=== PATIENT | male | born 1955 | race Caucasian/White ===

== ENCOUNTER 2016-09-12 11:16 | Emergency (ER) | payer BC ==
[~2016-09-12] VITALS: Ht 175.3 cm; Wt 86.2 kg
[2016-09-12] MEDS ORDERED: IV NORMAL SALINE 500ML 500 ML IV ONE (12:20)
[2016-09-12] MEDS ORDERED: ONDANSETRON PF 4 MG/2 ML VIAL. IV ONE (12:20)
[2016-09-12 12:23] LABS: BASO % 1 % (0-3); EOS % 1 % (0-3); HEMATOCRIT 39.2 % (39.0-53.0); HEMOGLOBIN 13.3 g/dL (13.0-17.5); LYMPH # 1.4 x10^3/uL (1.0-4.8); LYMPH % 19 % (24-48); MEAN CORPUSCULAR HEMOGLOBIN 34 pg (25-35); MEAN CORPUSCULAR HGB CONC 34 g/dL (31-37); MEAN CORPUSCULAR VOLUME 100 fL (79-100); MONO # 0.6 x10^3/uL (0.0-1.1); MONO % 8 % (0-9); NEUT # 5.2 x10^3uL (1.8-7.7); NEUT % 72 % (31-73); PLATELET COUNT 221 x10^3/uL (140-400); RED BLOOD COUNT 3.92 x10^6/uL (4.30-5.70); WHITE BLOOD COUNT 7.3 x10^3/uL (4.0-11.0)
[2016-09-12 12:31] LABS: BACTERIA,URINE FEW /HPF (0-FEW); BILIRUBIN,URINE NEG (NEG); CLARITY,URINE CLOUDY; COLOR,URINE YELLOW; GLUCOSE,URINE NEG (NEG); NITRITE,URINE NEG (NEG); RBC,URINE >40 /HPF (0-2); SQUAMOUS EPITHELIAL CELL,UR FEW /LPF; UROBILINOGEN,URINE 0.2 mg/dL (0.2 mg/dL)
[2016-09-12 12:32] LABS: HYALINE CASTS, URINE OCC /HPF
[2016-09-12 12:38] LABS: ALBUMIN/GLOBULIN RATIO 1.1 (1.0-1.7); CALCIUM 9.6 mg/dL (8.5-10.1); CREATININE 1.2 mg/dL (0.7-1.3); GFR 61.8; TOTAL BILIRUBIN 0.2 mg/dL (0.2-1.0); TOTAL PROTEIN 7.8 g/dL (6.4-8.2)
[2016-09-12] MEDS ORDERED: IOHEXOL 300 MG/ML 75 ML VIAL. IV ONE (13:00)
--- NOTE | 2016-09-12 13:35 | RAD ---
Indication right-sided pain under the rib cage. Axial images through the abdomen and pelvis were obtained. Approximately 75 cc of Omnipaque 300 was administered intravenously. No oral contrast was administered. No prior imaging of the abdomen or pelvis is available. An acute finding at either lung base is not seen. There is a tiny nodule peripherally in the right middle lobe measuring approximately 2 mm, image 3 series 2. Follow-up imaging along the lines of the Fleischner criteria advised. The liver and spleen appear unremarkable. The gallbladder appears grossly normal. There are no adrenal masses. The pancreas appears unremarkable. There is a large 7.5 cm right renal cyst. On the left there is mild hydronephrosis and dilatation of the renal pelvis to a 4 mm calculus at the UPJ. More distally the left ureter appears unremarkable. No acute finding is seen in the pelvis. IMPRESSION: 4 mm calculus at the left UPJ with associated mild obstructive uropathy. Right renal cyst. 2 mm nodule in the right middle lobe. Follow-up imaging along the lines of the Fleischner criteria should be considered. Nodules detected incidentally at non-screening CT Nodule size (mm) less than or equal to 4 Low Risk patients- no follow-up needed High Risk patients- follow-up at 12 months and if no change, no further imaging needed. Nodule size > 4-6 mm Low risk patients- follow- up at 12 months and if no change, no further imaging needed High risk patients- initial follow-up CT at 6-12 months and then at 18-24 months if no change. Nodule Size > 6-8 mm Low risk patients- initial follow-up CT at 6-12 months and then at 18-24 months if no change. High risk patients- initial follow- up CT at 3-6 months and then at 9-12 months if no change, Nodule Size >8 mm Either low or high risk patients: Follow-up CT at around 3, 9 and 24 months Dynamic contrast enhanced CT, PET, and/or biopsy Note: newly detected indeterminate nodule in person 35 years of age or older. Low risk patients- minimal or absent history of smoking and/or other known risk factors. High risk patients- history of smoking or of other known risk factors.
[2016-09-12] MEDS ORDERED: OXYC-323 PO (14:29)
[2016-09-12] MEDS ORDERED: TAMS0.4C97 PO (14:30)
--- NOTE | 2016-09-12 14:33 | PHYS DOC ---
Past History Past Medical History: Constipation, Hypertension, Liver Disease, Other Past Surgical History: No Surgical History Alcohol Use: None Drug Use: None Adult General Chief Complaint Chief Complaint: ABDOMINAL PAIN HPI HPI Patient is a 61 year old male who presents with abdominal pain. The patient states he was at work & had sudden onset of sharp LLQ pain that caused him to double over. He says the pain has almost completely resolved now. he has 1 week history of watery diarrhea - preceded by constipation when he was taking percocet for back pain. He denies fevers/chills, nausea/vomiting, hematochezia/ melena, dysuria/hematuria, testicular pain. He denies previous history of similar pain. History of hep C & HTN, no abdominal surgeries. Review of Systems Review of Systems Constitutional: Denies fever or chills Eyes: Denies change in visual acuity HENT: Denies nasal congestion or sore throat Respiratory: Denies cough or shortness of breath Cardiovascular: Denies chest pain or edema GI: Reports abdominal pain & diarrhea, denies nausea, vomiting, bloody stools : Denies dysuria or hematuria Musculoskeletal: Denies back pain or joint pain Integument: Denies rash or skin lesions Neurologic: Denies headache, focal weakness or sensory changes Current Medications Current Medications Current Medications Medications (Trade) Dose Ordered Sig/Edgar Start Time Stop Time Status Last Admin Dose Admin Iohexol (Omnipaque 300 Mg/ml) 75 ml 1X ONCE 09/12/16 13:00 09/12/16 13:01 DC 09/12/16 13:04 75 ML Ondansetron HCl (Zofran) 4 mg 1X ONCE 09/12/16 12:20 09/12/16 12:21 DC Sodium Chloride 500 ml @ 0 mls/hr 1X ONCE 09/12/16 12:20 09/12/16 12:21 DC 09/12/16 12:20 500 MLS/HR Allergies Allergies Allergies Coded Allergies Type Severity Reaction Last Updated Verified ciprofloxacin Allergy Intermediate Diarrhea 02/26/15 Yes Physical Exam Physical Exam Constitutional: Well developed, well nourished, no acute distress, non-toxic appearance. HENT: Normocephalic, atraumatic, bilateral external ears normal, oropharynx moist, nose normal. Eyes: conjunctiva normal, no discharge. Neck: supple, no stridor. Cardiovascular: RRR, no murmurs, no edema. Lungs & Thorax: LCTAB, no wheezing, no respiratory distress. Abdomen: normal bowel sounds, soft, no focal tenderness with palpation, no rebound/guarding, no masses or pulsatile masses, nondistended. Skin: Warm, dry, no erythema, no rash. Back: No CVA tenderness. Extremities: No tenderness, no edema. Neurologic: Alert and oriented X 3, no focal deficits noted. Psychologic: Affect normal, judgement normal, mood normal. Current Patient Data Vital Signs Vital Signs Date Time Temp Pulse Resp B/P (MAP) Pulse Ox O2 Delivery O2 Flow Rate FiO2 09/12/16 11:25 98.1 87 18 98 Room Air Lab Results Laboratory Tests Test 09/12/16 12:00 09/12/16 12:08 Urine Collection Type Unknown Urine Color Yellow Urine Clarity Cloudy Urine pH 5.5 Urine Specific [place] >=1.030 Urine Protein 100 mg/dl (NEG-TRACE) Urine Glucose (UA) Neg mg/dL (NEG) Urine Ketones (Stick) Neg mg/dL (NEG) Urine Blood Large (NEG) Urine Nitrite Neg (NEG) Urine Bilirubin Neg (NEG) Urine Urobilinogen Dipstick 0.2 mg/dL (0.2 mg/dL) Urine Leukocyte Esterase Neg (NEG) Urine RBC >40 /HPF (0-2) Urine WBC 1-4 /HPF (0-4) Urine Squamous Epithelial Cells Few /LPF Urine Bacteria Few /HPF (0-FEW) Urine Hyaline Casts Occ /HPF Urine Mucus Mod /LPF White Blood Count 7.3 x10^3/uL (4.0-11.0) Red Blood Count 3.92 x10^6/uL (4.30-5.70) L Hemoglobin 13.3 g/dL (13.0-17.5) Hematocrit 39.2 % (39.0-53.0) Mean Corpuscular Volume 100 fL (79-100) Mean Corpuscular Hemoglobin 34 pg (25-35) Mean Corpuscular Hemoglobin Concent 34 g/dL (31-37) Red Cell Distribution Width 14.0 % (11.5-14.5) Platelet Count 221 x10^3/uL (140-400) Neutrophils (%) (Auto) 72 % (31-73) Lymphocytes (%) (Auto) 19 % (24-48) L Monocytes (%) (Auto) 8 % (0-9) Eosinophils (%) (Auto) 1 % (0-3) Basophils (%) (Auto) 1 % (0-3) Neutrophils # (Auto) 5.2 x10^3uL (1.8-7.7) Lymphocytes # (Auto) 1.4 x10^3/uL (1.0-4.8) Monocytes # (Auto) 0.6 x10^3/uL (0.0-1.1) Eosinophils # (Auto) 0.0 x10^3/uL (0.0-0.7) Basophils # (Auto) 0.0 x10^3/uL (0.0-0.2) Sodium Level 144 mmol/L (136-145) Potassium Level 4.0 mmol/L (3.5-5.1) Chloride Level 107 mmol/L (98-107) Carbon Dioxide Level 26 mmol/L (21-32) Anion Gap 11 (6-14) Blood Urea Nitrogen 17 mg/dL (8-26) Creatinine 1.2 mg/dL (0.7-1.3) Estimated GFR (Cockcroft-Gault) 61.8 BUN/Creatinine Ratio 14 (6-20) Glucose Level 115 mg/dL (70-99) H Calcium Level 9.6 mg/dL (8.5-10.1) Total Bilirubin 0.2 mg/dL (0.2-1.0) Aspartate Amino Transferase (AST) 23 U/L (15-37) Alanine Aminotransferase (ALT) 40 U/L (16-63) Alkaline Phosphatase 50 U/L (46-116) Total Protein 7.8 g/dL (6.4-8.2) Albumin 4.0 g/dL (3.4-5.0) Albumin/Globulin Ratio 1.1 (1.0-1.7) EKG EKG [] Radiology/Procedures Radiology/Procedures PROCEDURE: CT ABD PELV W/ IV CONTRST ONLY Indication right-sided pain under the rib cage. Axial images through the abdomen and pelvis were obtained. Approximately 75 cc of Omnipaque 300 was administered intravenously. No oral contrast was administered. No prior imaging of the abdomen or pelvis is available. An acute finding at either lung base is not seen. There is a tiny nodule peripherally in the right middle lobe measuring approximately 2 mm, image 3 series 2. Follow-up imaging along the lines of the Fleischner criteria advised. The liver and spleen appear unremarkable. The gallbladder appears grossly normal. There are no adrenal masses. The pancreas appears unremarkable. There is a large 7.5 cm right renal cyst. On the left there is mild hydronephrosis and dilatation of the renal pelvis to a 4 mm calculus at the UPJ. More distally the left ureter appears unremarkable. No acute finding is seen in the pelvis. IMPRESSION: 4 mm calculus at the left UPJ with associated mild obstructive uropathy. Right renal cyst. 2 mm nodule in the right middle lobe. Follow-up imaging along the lines of the Fleischner criteria should be considered. Nodules detected incidentally at non-screening CT Nodule size (mm) less than or equal to 4 Low Risk patients- no follow-up needed High Risk patients- follow-up at 12 months and if no change, no further imaging needed. Nodule size > 4-6 mm Low risk patients- follow- up at 12 months and if no change, no further imaging needed High risk patients- initial follow-up CT at 6-12 months and then at 18-24 months if no change. Nodule Size > 6-8 mm Low risk patients- initial follow-up CT at 6-12 months and then at 18-24 months if no change. High risk patients- initial follow- up CT at 3-6 months and then at 9-12 months if no change, Nodule Size >8 mm Either low or high risk patients: Follow-up CT at around 3, 9 and 24 months Dynamic contrast enhanced CT, PET, and/or biopsy Note: newly detected indeterminate nodule in person 35 years of age or older. Low risk patients- minimal or absent history of smoking and/or other known risk factors. High risk patients- history of smoking or of other known risk factors. DICTATED AND SIGNED BY: ABISAI PAIGE MD DATE: 09/12/16 8423 [] Course & Med Decision Making Course & Med Decision Making Pertinent Labs and Imaging studies reviewed. (See chart for details) The patient presented abdominal pain which is quickly resolved at time of the evaluation. He feels anxious about the pain and is worried it may return. He would like to proceed with workup. No pain medication required in the emergency department. Obtained labs, UA, CT of the abdomen and pelvis. I did give IV contrast because with diarrhea was concerned he could have diverticulitis. UA shows blood and CT demonstrates with kidney stone at the UPJ. Normal renal function, no infection. Patient remains free of pain. Notified about lung nodule & recommend follow up with PCP. Recommend supportive care with by mouth hydration, provided flomax as well as percocet for severe pain, given sedation precautions no drinking alcohol or driving. Follow-up with Dr. Ramirez at [place] or with another urologist of his choosing. Return to the emergency department for high fever, severe pain, uncontrolled vomiting, any otherwise worsening condition. Discharged home in stable condition. [] Dragon Disclaimer Dragon Disclaimer This chart was dictated in whole or in part using Voice Recognition software in a busy, high-work load, and often noisy Emergency Department environment. It may contain unintended and wholly unrecognized errors or omissions. Departure Departure: Impression: Primary Impression: Ureteral colic Disposition: HOME, SELF-CARE Condition: STABLE Referrals: DAVY THOMSON DO (PCP) Patient Instructions: Kidney Stones, [id number] Additional Instructions: You were seen in the emergency department today for a kidney stone. It is 4 mm. Please drink fluids to stay hydrated, take norco for severe pain, & take flomax to encourage stone passage. Follow up with primary care physician or Dr. Ramirez in the urology clinic in about 1 week. Come back for high fever, severe pain, uncontrolled vomiting, any otherwise worsening condition. Your CT scan also showed a lung nodule which you can discuss with your doctor; will likely need a repeat scan in about a year. Scripts Tamsulosin Hcl (FLOMAX) 0.4 Mg Cap.er.24h 1 CAP PO DAILY, #15 CAP 11 Refills Prov: RENZO ELIZONDO MD 09/12/16 Oxycodone Hcl/Acetaminophen (PERCOCET 5-325 MG TABLET) 1 Each Tablet 1-2 TAB PO Q4-6HRS, #10 TAB Prov: RENZO ELIZONDO MD 09/12/16 RENZO ELIZONDO MD Sep 12, 2016 14:33
[2016-09-12 14:50] VITALS: BP 127/84
== END 2016-09-12 14:50 | disposition home or self-care (01) ==
LOC: ER 11:16
DX: N23 Unspecified renal colic (principal); I10 Essential (primary) hypertension; Z86.19 Personal history of other infectious and parasitic diseases; Z88.1 Allergy status to other antibiotic agents
CPT/HCPCS: 36415; 74177; 80053; 81001; 85027; 96360; 96361; 99285; J7040; Q9967